=== PATIENT | male | born 1965 ===

== ENCOUNTER 2017-04-20 05:22 | Day surgery (SDC) | payer BC ==
[2017-04-19 17:40] LABS: BASOPHILS % (AUTO) 1.7 % (0.0-2.0); EOSINOPHILS % (AUTO) 3.9 % (0.0-3.0); LYMPHOCYTES % (AUTO) 19.3 % (20.0-45.0); MEAN CORPUSCULAR HGB CONC 34.3 G/DL (32.0-36.0); MEAN CORPUSCULAR VOLUME 93 FL (80-99); MEAN PLATELET VOLUME 6.9 FL (6.5-10.1); MONOCYTES % (AUTO) 9.3 % (1.0-10.0); NEUTROPHILS % (AUTO) 65.8 % (45.0-75.0); PLATELET COUNT 270 K/UL (150-450); RED BLOOD COUNT 3.69 M/UL (4.70-6.10); RED CELL DISTRIBUTION WIDTH 12.9 % (11.6-14.8); WHITE BLOOD COUNT 7.4 K/UL (4.8-10.8)
[2017-04-19 17:53] LABS: INR 0.9 (0.9-1.1); PROTHROMBIN TIME 9.5 SEC (9.30-11.50)
[2017-04-19 17:58] LABS: ALANINE AMINOTRANSFERASE 13 U/L (3-41); ALBUMIN/GLOBULIN RATIO 1.3 (1.0-2.7); ANION GAP 19 (5-15); ASPARTATE AMINO TRANSFERASE 14 U/L (5-40); CALCIUM 9.3 mg/dL (8.6-10.2); CARBON DIOXIDE 20 mEQ/L (20-30); CHLORIDE 100 mEQ/L (98-107); CREATININE 1.2 mg/dL (0.7-1.2); GLOMERULAR FILTRATION RATE > 60 mL/min (>60); HEMOLYSIS 4; POTASSIUM 4.5 mEQ/L (3.4-4.9); SODIUM 139 mEQ/L (135-145); TOTAL PROTEIN 7.1 g/dL (6.6-8.7)
[2017-04-20] VITALS (9 sets, daily range): BP systolic 116–130; BP diastolic 78–88
[~2017-04-20] VITALS: Ht 171.4 cm; Wt 65.8 kg
[2017-04-20] MEDS ORDERED: ANDROGEL1.25 GM TD (06:38)
[2017-04-20] MEDS ORDERED: LOTREL 10-20 M1 EACH ORAL (06:38)
[2017-04-20] MEDS ORDERED: VIAGRA100 MG PO (06:38)
[2017-04-20] MEDS ORDERED: TRESIBA FL100 UNIT/1 SQ (06:38)
[2017-04-20] MEDS ORDERED: ALBUTEROL SULF8.5 GM INH (06:38)
[2017-04-20] MEDS ORDERED: LEVOTHYROXINE175 MCG ORAL (06:38)
[2017-04-20] MEDS ORDERED: HUMALOG KW200 UNIT/1 SQ (06:38)
[2017-04-20] MEDS ORDERED: ATORVASTATIN CA20 MG ORAL (06:38)
[2017-04-20] MEDS ORDERED: CYCLOBENZAPRINE10 MG ORAL (06:38)
[2017-04-20] MEDS ORDERED: FLUTICASONE PRO16 G1 NASAL (06:38)
[2017-04-20] MEDS ORDERED: DITROPAN10 MG ORAL (06:38)
[2017-04-20] MEDS ORDERED: CIALIS20 MG ORAL (06:38)
[2017-04-20] MEDS ORDERED: MIRTAZAPINE30 MG ORAL (06:38)
[2017-04-20] MEDS ORDERED: PANTOPRAZOLE SO40 MG ORAL (06:38)
[2017-04-20] MEDS ORDERED: CARAFATE1 G1 ORAL (06:38)
[2017-04-20] MEDS ORDERED: METFORMIN HCL1000 M1 ORAL (06:38)
[2017-04-20] MEDS ORDERED: IBUPROFEN600 MG ORAL (06:38)
[2017-04-20] MEDS ORDERED: Surgicel 4in x 8in TOPIC ONE (07:11)
--- NOTE | 2017-04-20 07:12 | Anethesia Preoperative Eval ---
Anesthesia Pre-op PMH/ROS General Date of Evaluation: Apr 20, 2017 Anesthesiologist: Cirilo ASA Score: ASA 2 Mallampati Score Class I : Soft palate, uvula, fauces, pillars visible Class II: Soft palate, uvula, fauces visible Class III: Soft palate, base of uvula visible Class IV: Only hard plate visible Mallampati Classification: Class II Surgeon: Gabriella Diagnosis: Right inguinal hernia Surgical Procedure: Right inguinal hernia repair Anesthesia History: none Family History: no anesthesia problems Allergies: Coded Allergies: No Known Allergies (Unverified , 04/19/17) Medications: see eMAR Past Medical History Cardiovascular: Reports: HTN, other - HLD, Denies: CAD, [place], arrhythmia, valve dz Pulmonary: Denies: COPD, NIMCO, asthma, other Gastrointestinal/Genitourinary: Denies: CRI, ESRD, GERD, other Neurologic/Psychiatric: Reports: depression/anxiety, other - migraines, Denies: CVA, TIA, dementia Endocrine: Reports: DM - uncontrolled-HBA1c 12, hypothyroidism, Denies: other, steroids HEENT: Denies: [place] (L), [place] (R), cataract (L), cataract (R), glaucoma, other Hematology/Immune: Reports: anemia - chronic, Denies: DVT, bleeding disorder, other Musculoskeletal/Integumentary: Reports: OA, Denies: DDD, DJD, RA, edema, other PSxH Narrative: UHR, left shoulder sx, oral sx Anesthesia Pre-op Phys. Exam Physician Exam Last Vital Signs Date Time Temp Pulse Resp B/P Pulse Ox O2 Delivery O2 Flow Rate FiO2 04/20/17 05:53 98.2 81 20 116/78 97 Room Air Constitutional: NAD Cardiovascular: RRR Respiratory: CTA Airway Exam Mallampati Score: Class II MO: full ROM: full Teeth: missing, intact Anesthesia Pre-op A/P Labs Hematology Test 04/19/17 17:15 White Blood Count 7.4 K/UL (4.8-10.8) Red Blood Count 3.69 M/UL (4.70-6.10) L Hemoglobin 11.8 G/DL (14.2-18.0) L Hematocrit 34.4 % (42.0-52.0) L Mean Corpuscular Volume 93 FL (80-99) Mean Corpuscular Hemoglobin 32.0 PG (27.0-31.0) H Mean Corpuscular Hemoglobin Concent 34.3 G/DL (32.0-36.0) Red Cell Distribution Width 12.9 % (11.6-14.8) Platelet Count 270 K/UL (150-450) Mean Platelet Volume 6.9 FL (6.5-10.1) Neutrophils (%) (Auto) 65.8 % (45.0-75.0) Lymphocytes (%) (Auto) 19.3 % (20.0-45.0) L Monocytes (%) (Auto) 9.3 % (1.0-10.0) Eosinophils (%) (Auto) 3.9 % (0.0-3.0) H Basophils (%) (Auto) 1.7 % (0.0-2.0) Coagulation Test 04/19/17 17:15 Prothrombin Time 9.5 SEC (9.30-11.50) Prothromb Time International Ratio 0.9 (0.9-1.1) Activated Partial Thromboplast Time 29 SEC (23-33) Chemistry Test 04/19/17 17:15 Sodium Level 139 mEQ/L (135-145) Potassium Level 4.5 mEQ/L (3.4-4.9) Chloride Level 100 mEQ/L (98-107) Carbon Dioxide Level 20 mEQ/L (20-30) Anion Gap 19 (5-15) H Blood Urea Nitrogen 15 mg/dL (7-23) Creatinine 1.2 mg/dL (0.7-1.2) Estimat Glomerular Filtration Rate > 60 mL/min (>60) Glucose Level 102 mg/dL (74-106) Calcium Level 9.3 mg/dL (8.6-10.2) Total Bilirubin < 0.2 mg/dL (0.0-1.2) Aspartate Amino Transf (AST/SGOT) 14 U/L (5-40) Alanine Aminotransferase (ALT/SGPT) 13 U/L (3-41) Alkaline Phosphatase 46 U/L (40-129) Total Protein 7.1 g/dL (6.6-8.7) Albumin 4.1 g/dL (3.5-5.2) Globulin 3.0 g/dL Albumin/Globulin Ratio 1.3 (1.0-2.7) Studies Pre-op Studies: EKG - sr Risk Assessment & Plan Assessment: ASA II Plan: GA Status Change Before Surgery: No Pre-Antibiotics Drug: Ancef 2g Given Within 1 Hr of Incision: Yes Time Given: 08:00 ALEKS JACOBSEN M.D. Apr 20, 2017 07:12
--- NOTE | 2017-04-20 07:42 | History and Physical ---
History of Present Illness Present Illness HPI 52M seen prior in office for evaluation of right inguinal hernia. As per patient, he first noted a right groin bulge 3-4 months ago. He does not recall lifting anything heavy or any inciting event but remembers feeling right groin discomfort and being able to palpate a "golf ball" sized bulge in his right groin. Since he has noted bulge intermittently. He also complaints of sharp pain intermittently in right groin. Pain severe at times and patient states that he almost went to the ED because of pain during one prior episode. Has never experience obstructive symptoms. no n/v/f/c. otherwise well. no similar complaints from left groin. Allergies: Coded Allergies: No Known Allergies (Unverified , 04/19/17) Medication History Scheduled Albuterol Sulfate* (Albuterol Sulfate Mdi*), 2 PUFF INH , (Reported) Amlodipine-Benazepril 10-20 Mg* (Lotrel 10-20 Mg Capsule*), 1 CAP ORAL DAILY, ( Reported) Atorvastatin Calcium* (Atorvastatin Calcium*), 10 MG ORAL BEDTIME, (Reported) Cyclobenzaprine Hcl* (Flexeril*), 10 MG ORAL , (Reported) Fluticasone Propionate* (Fluticasone Propionate*), 2 SPRAY NASAL , (Reported) Ibuprofen* (Motrin*), 600 MG ORAL , (Reported) Insulin Degludec (Tresiba Flextouch U-100), 16 UNIT SQ DA, (Reported) Insulin Lispro (Humalog Kwikpen), 10 UNIT SQ SLIDING SCALE, (Reported) Levothyroxine Sodium (Levothyroxine Sodium), 175 MCG ORAL DAILY, (Reported) Metformin Hcl* (Metformin Hcl*), 1,000 MG ORAL BID, (Reported) Mirtazapine* (Remeron*), 30 MG ORAL BEDTIME, (Reported) Oxybutynin Chloride (Oxybutynin Chloride), 10 MG ORAL DAILY, (Reported) Pantoprazole* (Pantoprazole*), 40 MG ORAL DAILY, (Reported) Sildenafil Citrate (Viagra), 100 MG PO DA, (Reported) Sucralfate* (Carafate*), 1 GM ORAL BID, (Reported) Tadalafil (Cialis), 20 MG ORAL NEEDED, (Reported) Testosterone (Androgel), 1.25 GM TD DA, (Reported) Patient History History Provided By: Patient Healthcare decision maker Resuscitation status Advanced Directive on File No Past Medical/Surgical History Past Medical/Surgical History: (1) Inguinal hernia of right side without obstruction or gangrene (2) Diabetes Social History Social History: (1) Tobacco abuse Review of Systems Constitutional: Denies: chills, fever, malaise, no symptoms, other, see HPI, sweats, weakness Eye: Denies: acuity changes, blurred vision, discharge, double vision, eye pain , no symptoms, nose congestion, nose pain, other, see HPI, tearing ENT: Denies: ear discharge, ear pain, hearing loss, mouth pain, nasal discharge , no symptoms, nose congestion, nose pain, other, see HPI, throat pain, throat swelling Respiratory: Denies: JETT, cough, no symptoms, orthopnea, other, see HPI, shortness of breath, sputum, stridor, wheezing Cardiovascular: Denies: PND, chest pain, edema, no symptoms, other, palpitations, see HPI, syncope Gastrointestinal: Denies: abdominal pain, constipation, diarrhea, hematemesis, melena, nausea, no symptoms, other, see HPI, vomiting Genitourinary: Denies: discharge, dysuria, frequency, hematuria, incontinence, no symptoms, other, pain, retention, see HPI, urgency, vag bleed/dc Musculoskeletal: Denies: back pain, gout, joint pain, joint swelling, muscle pain, muscle stiffness, no symptoms, other, see HPI Skin: Denies: change in color, change in hair/nails, dryness, lesions, no symptoms, other, rash, see HPI Psychiatric: Denies: HI, SI, anxiety, depressed feelings, emotional problems, hallucinations, no symptoms, other, prior hx, see HPI Neurological: Denies: dizziness, focal weakness, headache, no symptoms, numbness, other, paresthesia, see HPI, seizure, syncope, tingling, tremors Endocrine: Denies: excessive sweating, flushing, increased thirst, increased urine, intolerance to temperature, no symptoms, other, see HPI, unexplained weight loss Hematologic/Lymphatic: Denies: anemia, blood clots, diathesis, easy bleeding, easy bruising, no symptoms, other, see HPI, swollen glands All Other Systems: negative except mentioned in HPI Physical Exam General Appearance: WD/WN, no apparent distress, alert Lines, tubes and drains: peripheral HEENT: normocephalic, PERRL Neck: normal inspection Respiratory/Chest: lungs clear, normal breath sounds, no respiratory distress, no accessory muscle use Cardiovascular/Chest: normal peripheral pulses, normal rate, regular rhythm Abdomen: normal bowel sounds, non tender, soft, no organomegaly, no mass, hernia - right inguinal hernia. no left hernia noted on exam , other - prior umbilical hernia s/p repair incision well healed Genitourinary/Rectal: normal genital exam Extremities: normal range of motion, non-tender, normal inspection Skin Exam: normal pigmentation, warm/dry Neurologic: celery packer II-XII grossly normal, no motor/sensory deficits, alert, oriented x 3, responsive Last 24 Hour Vital Signs Date Time Temp Pulse Resp B/P Pulse Ox O2 Delivery O2 Flow Rate FiO2 04/20/17 05:53 98.2 81 20 116/78 97 Room Air Laboratory Tests Test 04/19/17 17:15 White Blood Count 7.4 K/UL (4.8-10.8) Red Blood Count 3.69 M/UL (4.70-6.10) L Hemoglobin 11.8 G/DL (14.2-18.0) L Hematocrit 34.4 % (42.0-52.0) L Mean Corpuscular Volume 93 FL (80-99) Mean Corpuscular Hemoglobin 32.0 PG (27.0-31.0) H Mean Corpuscular Hemoglobin Concent 34.3 G/DL (32.0-36.0) Red Cell Distribution Width 12.9 % (11.6-14.8) Platelet Count 270 K/UL (150-450) Mean Platelet Volume 6.9 FL (6.5-10.1) Neutrophils (%) (Auto) 65.8 % (45.0-75.0) Lymphocytes (%) (Auto) 19.3 % (20.0-45.0) L Monocytes (%) (Auto) 9.3 % (1.0-10.0) Eosinophils (%) (Auto) 3.9 % (0.0-3.0) H Basophils (%) (Auto) 1.7 % (0.0-2.0) Prothrombin Time 9.5 SEC (9.30-11.50) Prothromb Time International Ratio 0.9 (0.9-1.1) Activated Partial Thromboplast Time 29 SEC (23-33) Sodium Level 139 mEQ/L (135-145) Potassium Level 4.5 mEQ/L (3.4-4.9) Chloride Level 100 mEQ/L (98-107) Carbon Dioxide Level 20 mEQ/L (20-30) Anion Gap 19 (5-15) H Blood Urea Nitrogen 15 mg/dL (7-23) Creatinine 1.2 mg/dL (0.7-1.2) Estimat Glomerular Filtration Rate > 60 mL/min (>60) Glucose Level 102 mg/dL (74-106) Calcium Level 9.3 mg/dL (8.6-10.2) Total Bilirubin < 0.2 mg/dL (0.0-1.2) Aspartate Amino Transf (AST/SGOT) 14 U/L (5-40) Alanine Aminotransferase (ALT/SGPT) 13 U/L (3-41) Alkaline Phosphatase 46 U/L (40-129) Total Protein 7.1 g/dL (6.6-8.7) Albumin 4.1 g/dL (3.5-5.2) Globulin 3.0 g/dL Albumin/Globulin Ratio 1.3 (1.0-2.7) Height (Feet): 5 Height (Inches): 7.50 Weight (Pounds): 145 Assessment/Plan Problem List: (1) Inguinal hernia of right side without obstruction or gangrene Assessment & Plan: 52M right inguinal hernia. to OR today for right inguinal hernia repair with mesh NPO with IV fluids pre op abx ICD Codes: K40.90 - Unilateral inguinal hernia, without obstruction or gangrene , not specified as recurrent SNOMED: [id number] StivenbaldemarDelbert Apr 20, 2017 07:42
--- NOTE | 2017-04-20 07:44 | Pre-Procedure Note/Attestation ---
Pre-Procedure Note/Attestation Complete Prior to Procedure Planned Procedure: right Procedure Narrative: right inguinal hernia repair with mesh Indications for Procedure Pre-Operative Diagnosis: right inguinal hernia Attestation I attest that I discussed the nature of the procedure; its benefits; risks and complications; and alternatives (and the risks and benefits of such alternatives ), prior to the procedure, with the patient (or the patient's legal entry level account representative). I attest that, if there was a reasonable possibility of needing a blood transfusion, the patient (or the patient's legal entry level account representative) was given the [facility] standardized written summary, pursuant to the Demario Mellott Blood Safety Act ([place] Health and Safety Code # 1645, as amended). I attest that I re-evaluated the patient just prior to the surgery and that there has been no change in the patient's H&P, except as documented below: patient with tobacco abuse and DM. explained in detail the risks, benefits, and alternatives to surgery. explained the possibility of infection, bleeding, recurrence, mesh infection and his higher than usual risk of these given tobacco use and DM. Delbert Quiroz Apr 20, 2017 07:44
[2017-04-20] MEDS ORDERED: Ketorolac 30mg Inj ONE (07:45)
[2017-04-20] MEDS ORDERED: Midazolam 2mg/2ml Inj ONE (07:45)
[2017-04-20] MEDS ORDERED: NS Irrig 1000ml ONE (07:45)
[2017-04-20] MEDS ORDERED: Lidocaine 1% MPF 10mg/ml 5ml ONE (07:45)
[2017-04-20] MEDS ORDERED: ceFAZolin sod 2 GM in D5W 110 ML IV ONE (07:45)
[2017-04-20] MEDS ORDERED: Propofol 10mg/ml 20ml IV ONE (07:45)
[2017-04-20] MEDS ORDERED: Sterile Water Irrig 1000ml IRRIG ONE (07:45)
[2017-04-20] MEDS ORDERED: LR 1000ml ONE (07:45)
[2017-04-20] MEDS ORDERED: fentaNYL 250mcg/5ml ONE (07:45)
[2017-04-20] MEDS ORDERED: Nimbex 2mg/ml Inj 10ML IVP ONE (07:45)
[2017-04-20] MEDS ORDERED: Neostigmine 1mg/ml 10ml Inj ONE (07:45)
[2017-04-20] MEDS ORDERED: Metoclopramide 10mg/2ml Inj ONE (07:45)
[2017-04-20] MEDS: Bupivacaine w/Epi 0.25% 30ml Vial INJ ONE ×2 (08:12→08:41)
[2017-04-20] MEDS ORDERED: LR 1000ml 1,000 ML IVLG SCH (08:17)
[2017-04-20] MEDS ORDERED: Hydromorphone 0.5mg/0.5ml inj IVP PRN (08:30)
[2017-04-20] MEDS ORDERED: Ketorolac 30mg Inj IV PRN (08:30)
[2017-04-20] MEDS ORDERED: Midazolam 2mg/2ml Inj IVP PRN (08:30)
[2017-04-20] MEDS ORDERED: DiphenhydrAMINE 50mg/ml Inj IVP PRN (08:30)
[2017-04-20] MEDS ORDERED: fentaNYL 100 mcg/2 mL IV PRN (08:30)
[2017-04-20] MEDS ORDERED: Metoclopramide 10mg/2ml Inj IVP PRN ×2 (08:30→08:37)
[2017-04-20] MEDS ORDERED: Bacitracin 50000 Units Vial IRRIG ONE (08:45)
--- NOTE | 2017-04-20 09:21 | Brief Operative Note ---
Immediate Post Operative Note Operative Note Pre-op Diagnosis: right inguinal hernia Procedure: right inguinal hernia repair with mesh Post-op Diagnosis: right indirect inguinal hernia Findings: consistent w/pre-op dx studies Surgeon: malgorzata Anesthesiologist: therese Anesthesia: general Specimen: yes - hernia sac Complications: none Condition: stable Fluids: see records Estimated Blood Loss: minimal Drains: none Implant(s) used?: No Delbert Quiroz Apr 20, 2017 09:21
--- NOTE | 2017-04-20 09:29 | Operative Note - PDOC ---
Operative Note Operative Note Pre-op Diagnosis: right inguinal hernia Procedure: right inguinal hernia repair with mesh Post-op Diagnosis: right indirect inguinal hernia Operative Findings: consistent w/pre-op dx studies Surgeon: Delbert Quiroz MD Anesthesiologist: Cirilo PEARCE Anesthesia: general Specimen: yes - hernia sac Complications: none Condition: stable Fluids: see records Estimated Blood Loss: minimal Drains: none Indications for Procedure Mr Devries is a 52-year old man who developed a symptomatic right inguinal hernia. He was seen in Dr. Quiroz in clinic. Clinical history was documented in Dr. Quiroz's clinic note. Surgical repair was indicated and recommended using a prosthetic mesh. The risks, benefits, alternative and rationale of surgery were explained in Dr. Quiroz clinic, including the risk of not operating. Informed consent was obtained by for RIGHT inguinal hernia repair with mesh which we performed today. Description of Procedure The patient was brought to the operating room where a surgical safety checklist was performed. Preoperatively, 2 grams of IV Ancef was administered. General anaesthetic was used. In supine position, the right groin was prepped and draped in a sterile fashion. The scalpel was used to make an oblique skin incision, parallel and superior to the inguinal ligament. This was deepened through Scarpas and Campers fascia using electrocautery down to the external oblique aponeurosis. The external oblique aponeurosis was opened in the direction of its fibers through the external ring using a metzenbaum scissors. The ilioinguinal nerve was identified and protected from injury. The inguinal floor was exposed by creating superior and inferior flaps of the external oblique. The spermatic cord was identified, mobilized at the pubic tubercle and isolated using a Lauren drain. This was done by dissecting the cremasteric fibers from the cord. The anteromedial aspect of the cord was examined and an indirect hernia sac was identified. The sac was carefully dissected free of the cord down to the level of the internal ring.The sac was opened and the contents were reduced into the peritoneal cavity. The sac was twisted and suture ligated with 3-0 vicryl suture. Any redundant sac was excised using electrocautery. The stump of the sac was checked for hemostasis and allowed to retract into the abdomen.The floor of the inguinal canal was assessed digitally and found to be intact. To repair the floor of the canal, a polypropylene mesh was cut to size in an oval with a longitudinal lateral opening. Starting at the pubic tubercle, the mesh was secured flat with continuous 2-0 prolene sutures to the reflected edge of the inguinal ligament inferiorly, the conjoint tendon superiorly. The ends of the patch were draped around the cord structures at the level of the internal ring. The Dorsey drain was removed and the cord itself was returned to its anatomic location above the mesh. Hemostasis was achieved using electrocautery. The external oblique aponeurosis was re- approximated using a continuous 3-0 vicryl suture, paying particular attention to the ilioinguinal nerve to protect it from injury. Scarpas fascia was closed with several interrupted 3-0 vicryl sutures, and the skin was closed using a 4-0 subcuticular continuous monofilament suture. The operative field was cleaned and dried. Skin glue and Steristrips were applied The testes were gently pulled down into its anatomic position in the scrotum. There were no intraoperative complications and estimated blood loss was minimal. All instrument and sponge counts were correct. A surgical de-briefing was performed. The patient was extubated and transferred to the PACU in stable condition. Delbert Quiroz Apr 20, 2017 09:29
--- NOTE | 2017-04-20 09:29 | Immediate Post-Op Evaluation ---
Immediate Post-Op Evalulation Immediate Post-Op Evalulation Procedure: Right open inguinal hernia repair Date of Evaluation: Apr 20, 2017 Time of Evaluation: 09:31 IV Fluids: 900 Blood Products: 0 Estimated Blood Loss: min Urinary Output: 0 Blood Pressure Systolic: 121 Blood Pressure Diastolic: 81 Pulse Rate: 82 Respiratory Rate: 16 O2 Sat by Pulse Oximetry: 97 Temperature (Fahrenheit): 98.2 Pain Score (1-10): 0 Nausea: No Vomiting: No Complications 0 Patient Status: awake, reacts, patent, none Hydration Status: adequate Drug: Ancef 2g Given Within 1 Hr of Incision: Yes Time Given: 08:00 ALEKS JACOBSEN M.D. Apr 20, 2017 09:29
[2017-04-20] MEDS ORDERED: Norco 5mg/325mg tab ORAL PRN (11:00)
[2017-04-20] MEDS ORDERED: D5 1/2NS 1,000 ML IV SCH (14:01)
[2017-04-20] MEDS ORDERED: Tylenol #3 tab (300mg/30mg) ORAL PRN (14:01)
[2017-04-20] MEDS ORDERED: HYDROmorphone 1mg/ml Carpuject SUBQ PRN (14:01)
[2017-04-21 09:30] VITALS: BP 117/80
--- NOTE | 2017-04-21 09:30 | 48 Hour Post Anesthesia Eval ---
Post Anesthesia Evaluation Procedure: Right open inguinal hernia repair Date of Evaluation: Apr 20, 2017 Time of Evaluation: 12:10 Blood Pressure Systolic: 117 0: 80 Pulse Rate: 94 Respiratory Rate: 20 O2 Sat by Pulse Oximetry: 95 Nausea: No Vomiting: No Pain Intensity: 0 Hydration Status: adequate Cardiopulmonary Status: at [place] Mental Status/LOC: patient returned to baseline Post-Anesthesia Complications: 0 Follow-up care needed: ready to discharge ALEKS JACOBSEN M.D. Apr 21, 2017 09:30
--- NOTE | 2017-04-23 18:45 | Cardiology Report ---
APPROVED REPORT EKG Measurement Heart [id number] Normal sinus rhythm Normal ECG
== END 2017-04-20 12:30 | disposition home or self-care (01) ==
LOC: SUR 05:22
DX: K40.90 Unilateral inguinal hernia, without obstruction or gangrene, not specified as recurrent (principal); E11.9 Type 2 diabetes mellitus without complications; F17.210 Nicotine dependence, cigarettes, uncomplicated; I10 Essential (primary) hypertension; E78.5 Hyperlipidemia, unspecified; F32.9 Major depressive disorder, single episode, unspecified; F41.9 Anxiety disorder, unspecified; D64.9 Anemia, unspecified; E03.9 Hypothyroidism, unspecified; M19.90 Unspecified osteoarthritis, unspecified site; G43.909 Migraine, unspecified, not intractable, without status migrainosus; Z79.4 Long term (current) use of insulin; Z79.84 Long term (current) use of oral hypoglycemic drugs; Z79.899 Other long term (current) drug therapy
CPT/HCPCS: 36415; 80053; 82962; 85025; 85610; 85730; 93005; 94003; 94150; J2250; J2405; J2710; J2765